=== PATIENT | female | born 1955 | race Caucasian/White ===

== ENCOUNTER → 2016-06-05 | Outpatient (CLI) | payer OTHER ==
[~2016-06-05] MED LIST: AMIO200T2 PO; ATOR20TA59 PO; BUME1TAB17 PO; CLOP75TA PO; CYAN10009 PO; DABI150C PO; ESCI20TA30 PO; FOLI1TAB15 PO; GABA-338 PO; INSU100V12 SQ; INSU100V13 SQ; LEVO100T4 PO; NITR0.4T39 SL; UBID100C29 PO
--- NOTE | 2016-06-05 09:16 | DI ---
Indication: ITS.REASON: N18.9 CHRONIC RENAL FAILURE PROCEDURE: US RENAL: Encounter: Initial Comparison: None Technique: Grayscale and color Doppler sonographic imaging of both kidneys and bladder was performed. FINDINGS: Both kidneys are present with moderate cortical thinning and increased echogenicity. No evidence for collecting system dilatation, contour deforming mass, nephrolithiasis, or abnormal perinephric fluid collection. The right kidney measures 10.3 cm in length, and the left kidney measures 10.5 cm in length. Bladder appears sonographically normal without debris or mass. Prevoid bladder volume was 629.5 mL. Post void residual volume of 3.6 mL. IMPRESSION: No hydronephrosis. Evidence of medical renal disease. .
== END ==
LOC: IMA 08:05
PROVIDERS: ATTEND Family Medicine
DX: N18.3 Chronic kidney disease, stage 3 (moderate) (principal)